=== PATIENT | female | born 1990 | race African-American/Black ===

== ENCOUNTER 2016-12-11 19:02 | Emergency (ER) | payer OTHER ==
[~2016-12-11] VITALS: Ht 160 cm; Wt 104.3 kg
[~2016-12-11 19:02] MED LIST: ADVAIR 250-501 EACH INH; ALBUTEROL INHAL17 GM IH; APAP500; APAP500 PO; BACTRIM DS TAB1 EACH PO; CLEOCIN HCL150 MG PO; DERMOPLAST SPRA56 ML; DULCOLAX10 MG RC; FLAGYL500 MG PO; GLUCOPHAGE500 MG PO; HYDROCODONE-AP1 EAC6 PO; HYDROCORTISONE30 G9; IBUPROFEN 800800 M1 PO; MACROBID 100 M100 M1 PO; NAPROSYN500 MG PO; NOHOMEMEDICATIONS; NORCO 5-325 TA1 EACH PO; PRENATAL COMPL1 EACH PO; PRENATAL DHA+C1 EACH PO; PRENATAL PO; SENNA; SINGULAIR 10 MG10 M1 PO; TRAMADOL 50 MG50 MG PO; TUCKS MEDICATE1 EAC1; TUCKS MEDICATE1 EAC1 TOP; WOMEN'S DAILY1 EACH PO; ZOLOFT100 MG PO
[2016-12-11] MEDS ORDERED: BACTRIM DS TAB1 EACH PO (19:33)
[2016-12-11] MEDS ORDERED: NORCO 5-325 TA1 EACH PO (19:33)
[2016-12-11] MEDS ORDERED: KEFLEX500 MG PO (19:39)
[2016-12-29] MEDS ORDERED: IBUPROFEN 200200 M1 PO (12:19)
[2016-12-29] MEDS ORDERED: NEXPLANON68 MG SQ (12:19)
[2016-12-29] MEDS ORDERED: ZYRTEC10 M5 PO (12:19)
[2016-12-29] MEDS ORDERED: ACCUNEB SO1.25 MG/1 INH (12:20)
== END 2016-12-11 20:00 | disposition home or self-care (01) ==
LOC: ER 19:02
DX: N61.1 Abscess of the breast and nipple (principal); J45.909 Unspecified asthma, uncomplicated; Z88.1 Allergy status to other antibiotic agents; Z88.0 Allergy status to penicillin; F17.210 Nicotine dependence, cigarettes, uncomplicated

== ENCOUNTER 2018-06-07 19:05 | Emergency (ER) | payer OTHER ==
[~2018-06-07] VITALS: Ht 160 cm; Wt 105.2 kg
[~2018-06-07 19:05] MED LIST changes: +ACCUNEB SO1.25 MG/1 INH; +IBUPROFEN 200200 M1 PO; +KEFLEX500 MG PO; +NEXPLANON68 MG SQ; +ZYRTEC10 M5 PO
[2018-06-07] MEDS ORDERED: CLEOCIN HCL150 MG PO (21:13)
[2018-06-07] MEDS ORDERED: NORCO 5-325 TA1 EACH PO (21:13)
== END 2018-06-07 21:53 | disposition home or self-care (01) ==
LOC: ER 19:05
DX: L02.412 Cutaneous abscess of left axilla (principal); K21.9 Gastro-esophageal reflux disease without esophagitis; J45.909 Unspecified asthma, uncomplicated; F17.210 Nicotine dependence, cigarettes, uncomplicated; Z88.0 Allergy status to penicillin; Z88.1 Allergy status to other antibiotic agents

== ENCOUNTER → 2019-01-03 | Outpatient (CLI) | payer OTHER | LOC: ULTRA 12:45 | DX: N63.24 Unspecified lump in the left breast, lower inner quadrant (principal) ==

== ENCOUNTER → 2021-06-01 | Outpatient (CLI) | payer OTHER | LOC: ULTRA 13:45 | PROVIDERS: ATTEND Family Medicine | DX: E01.0 Iodine-deficiency related diffuse (endemic) goiter (principal) ==